=== PATIENT | male | born 1950 | race Caucasian/White ===

== ENCOUNTER → 2024-07-11 09:24 | Outpatient (REF) | payer MEDICARE, OTHER, SELFPAY | LOC: HWRAD 09:24 | PROVIDERS: ATTENDING PHYSICIAN Urology; FAMILY PHYSICIAN Family Medicine | DX: N20.0 Calculus of kidney (principal) | CPT/HCPCS: 76770 ==

== ENCOUNTER 2024-09-04 03:51 | Emergency (ER) | payer MEDICARE, OTHER, SELFPAY ==
[2024-09-04 03:53] VITALS: BP 177/92
[2024-09-04 05:22] LABS: % Eosinophils 2.1 % (0-6); % Immature Granulocytes 0.3 % (0-0.5); % Lymphocytes 32.1 % (20.5-51.1); % Monocytes 11.5 % (1.7-9.3); Absolute Basophils 0.1 10^3/uL (0-0.2); Absolute Eosinophils 0.1 10^3/uL (0-0.7); Absolute Monocytes 0.7 10^3/uL (0.1-0.6); Absolute Neutrophils 3.3 10^3/uL (1.4-6.5); Hematocrit 42.8 % (39.0-52.0); Hemoglobin 14.6 g/dL (13.0-18.0); Mean Corp Hgb Conc. 34.1 g/dL (33.0-37.0); Mean Corpuscular Hgb 30.2 pg (27.0-31.0); Mean Corpuscular Volume 88.4 fL (80.0-94.0); Mean Platelet Volume 9.4 fL (7.4-10.4); Nucleated Red Blood Cells % 0 % (-); Platelet Count 184 10^3/uL (130-400); Red Blood Cell Count 4.84 10^6/uL (4.70-6.10); Red Cell Dist. Width 12.3 % (11.5-14.5); White Blood Cell Count 6.2 10^3/uL (4.8-10.8)
[2024-09-04 05:33] LABS: ALT (SGPT) 22 U/L (0-50); AST (SGOT) 28 U/L (17-59); Albumin 4.3 g/dl (3.5-5.0); Alkaline Phosphatase 104 U/L (38-126); Blood Urea Nitrogen 28 mg/dl (9-20); Calcium 9.5 mg/dl (8.4-10.2); Carbon Dioxide 26 mmol/L (22-30); Chloride 106 mmol/L (98-107); Glucose 125 mg/dl (70-99); Potassium 4.5 mmol/L (3.5-5.1); Sodium 142 mmol/L (135-145); Total Bilirubin 0.6 mg/dl (0.2-1.3); Total Protein 6.6 g/dl (6.3-8.2); eGFR 57.65
[2024-09-04 06:14] LABS: Urine Albumin Trace (Neg - Trace); Urine Bilirubin Negative (Negative); Urine Character Clear (Clear); Urine Color Yellow; Urine Glucose Negative (Negative); Urine Ketone Negative (Negative); Urine Leukocyte Negative (Negative); Urine Nitrite Negative (Negative); Urine Occult Blood Negative (Negative); Urine Specific Gravity 1.025 (<1.030); Urine Urobilinogen Negative (Neg - 1+)
[2024-09-04 06:51] VITALS: BP 155/85
[2024-09-04 06:52] VITALS: BP 155/85
--- NOTE | 2024-09-04 07:30 | ED.GENMED ---
History of Present Illness
General
Chief Complaint: Back Pain
Source: patient
Exam Limitations: none
Time Seen by Provider: 09/04/24 06:21
Nursing documentation reviewed up to this point in time: agreed with
History of Present Illness
History of Present Illness:
Patient presents to ED secondary to persistent left lower back pain over the past 3 days. Patient was evaluated urgent care center yesterday and prescribed naproxen, which he has taken with mild relief in symptoms. Denies trauma. Denies nausea or
vomiting. Denies difficulty with urination. Denies loss of sensation or weakness. Denies urinary or bowel incontinence. Denies any fever or chills. Patient has had history of kidney stones, is unsure if his symptoms are similar. Denies
difficulty with ambulation. Denies recent change in activities.
Past History
Past History
ED Past Medical History: CAD, GERD, Hypercholesterolemia and Other (Arthritis, degenerative arthritis, angina)
ED Past Surgical History: Cardiac (Cardiac catheterization with stenting) and Orthopedic (Elbow surgery)
Social History
Tobacco: Non-smoker
Personal:
Living: with family
Employment: Employed
Review of Systems
Review of Systems
Allergies reviewed?: Yes
All Other Systems: ROS reviewed and negative except as documented in HPI and ROS
Constitutional: Reports no symptoms; Denies fever
Respiratory: Reports no symptoms
Cardiac: Reports no symptoms
ABD/GI: Reports no symptoms; Denies abdominal pain, nausea, vomiting or diarrhea
: Reports no symptoms; Denies incontinence
Musculoskeletal: Reports back pain
Skin: Reports no symptoms
Neurological: Reports no symptoms
Phy Exam
Physical Exam
Physical Exam:
Physical Exam
General: no apparent distress, not acutely ill. afebrile
Head: nc/at. eomi
Neck: supple. normal range of motion.
Abdomen: normal bowel sounds. not tender.
Back: no midline tenderness. mild left lower back tenderness to palpation, at level of L3-4. negative straight leg raise
Neuro: alert and oriented x 3. no focal neurological deficits. normal gait.
Skin: no rash
Psychiatric: well kept. interactive and cooperative
Extremities: no edema. no calf tenderness.
Course
Orders/Labs/Results
Orders:
Orders
09/04/24 04:57
Complete Blood Count/With Diff Urgent
Comprehensive Metabolic Panel Urgent
09/04/24 05:57
Urinalysis Reflex To Culture Urgent
Date Specimen was Collected: 09/04/24
Time Specimen was Collected: 04:00
09/04/24 06:29
CT Abd/pel Without Iv Or Oral Urgent
Comment:
Reason For Exam: left flank/lower back pain w hx kidney stone
09/04/24 08:16
Tramadol HCl [Ultram] 50 mg PO NOW STA
Abnormal Lab Results
09/04/24
04:57
Absolute Monos (auto) 0.7 H 10^3/uL
(0.1-0.6)
Monocytes % 11.5 H %
(1.7-9.3)
BUN 28 H mg/dl
(9-20)
Glucose 125 H mg/dl
(70-99)
09/04/24 04:57
09/04/24 04:57
Vital Signs
Initial and Last Documented VS:
Initial Vital Signs
Temp Pulse Resp BP Pulse Ox
98.0 F 56 18 177/92 98
09/04/24 03:53 09/04/24 03:53 09/04/24 03:53 09/04/24 03:53 09/04/24 03:53
Last Documented Vital Signs
Temp Pulse Resp BP Pulse Ox
98.0 F 58 20 149/89 97
09/04/24 03:53 09/04/24 08:17 09/04/24 08:17 09/04/24 08:17 09/04/24 08:17
MDM/Problems Addressed
MDM/Problems Addressed:
CT abdomen pelvis: No acute findings. History exam consistent with nonspecific back pain, likely musculoskeletal etiology. Will recommend conservative treatment, including warm compress, rest, along with steroids. Patient will be advised to
follow-up with PCP for reevaluation, including potential MRI lumbar spine, if symptoms persist. Patient currently does not have any exam findings concerning for cauda equina syndrome, but will provide precautions when he should return to ED, i.e.
incontinence/weakness/numbness/fever.
*Critical Care Note
Total Time (30-74mins, 75-104mins- exclusive of procedures): Not Applicable
ED Attending Note
-
Portions of this chart may have been created with voice recognition software.� Occasional wrong word or��sound alike� substitutions may have occurred due to the inherent limitations of voice recognition software.
Discharge Plan
Departure
Patient Disposition: Home (Routine Discharge)
Date of Disposition: 09/04/24
Time of Disposition: 07:34
Patient with high blood pressure during this ER visit?: Yes
Condition: Good
Discharge Problem:
Back pain
Instructions: Low Back Pain (DC)
Prescriptions:
New
methylprednisolone [Medrol ([place])] 4 mg tablets,dose pack
4 mg PO DAILY Qty: 21 0RF
tramadol 50 mg tablet
50 mg PO Q8H PRN (Reason: Pain) Qty: 14 0RF
No Action
aspirin [Aspir-Low] 81 MG tablet,delayed release (DR/EC)
81 mg PO DAILY
nitroglycerin 0.4 MG tablet, sublingual
0.4 mg sublingual [id number] PRN (Reason: chest pain ) Qty: 25 1RF
Rx Instructions:
1 tab under tongue q 5min. x 3 doses as needed for chest pain
multivitamin [Daily Vitamin] 1 EACH tablet
1 tab PO DAILY
calcium carbonate [Calcium 600] 600 MG tablet
600 mg PO DAILY
atorvastatin 20 MG tablet
40 mg PO QPM
Referrals:
Girish Romero MD [Family Provider] -
Activity Restrictions/Additional Instructions:
As discussed, please follow-up with your primary care physician for reevaluation, including potential MRI lumbar spine, if your symptoms persist. In the meantime, recommend conservative treatment, including prescribed medication as well as
Tylenol/Motrin for pain. Your prescription has been sent electronically to [facility] pharmacy in [place].
Interventions
Interventions:
*Risk Screen - Suicide Last Done: 09/04/24 06:50
*General Assessment Last Done: 09/04/24 03:53
*Neglect/Abuse Screening Last Done: 09/04/24 03:53
ED- Fall Risk Assessment Last Done: 09/04/24 06:50
*ED COVID-19 Vaccine History Last Done: 09/04/24 03:53
*Nursing Disposition Last Done: 09/04/24 08:26
ED-Musculoskeletal Assessment Last Done: 09/04/24 06:50
Discharge Date and Time
Discharge Date/Time: 09/04/24 08:28
Print Language: ARABIC
[2024-09-04 08:17] VITALS: BP 149/89
[2024-09-04] MEDS: ULTRAM 50 MG PO (08:24)
== END 2024-09-04 08:28 | disposition home or self-care (01) ==
LOC: EMR 03:51
PROVIDERS: Emergency Medicine; EMERGENCY PHYSICIAN Emergency Medicine; FAMILY PHYSICIAN Family Medicine
DX: M54.9 Dorsalgia, unspecified (principal)
CPT/HCPCS: 99284; 74176; 80053; 81003; 85025

== ENCOUNTER → 2025-06-23 10:26 | Outpatient (REF) | payer MEDICARE, OTHER, SELFPAY | LOC: RAD 10:26 | PROVIDERS: ATTENDING PHYSICIAN Urology; FAMILY PHYSICIAN Family Medicine | DX: N20.0 Calculus of kidney (principal) | CPT/HCPCS: 76775 ==

== ENCOUNTER → 2025-08-14 09:42 | Outpatient (REF) | payer MEDICARE, OTHER, SELFPAY | LOC: RCS 09:42 | PROVIDERS: ATTENDING PHYSICIAN Internal Medicine Cardiovascular Disease; FAMILY PHYSICIAN Family Medicine | DX: I25.10 Atherosclerotic heart disease of native coronary artery without angina pectoris (principal); I35.0 Nonrheumatic aortic (valve) stenosis; R42 Dizziness and giddiness | CPT/HCPCS: 93017; 93350 ==

== ENCOUNTER → 2025-08-20 06:56 | Outpatient (REF) | payer MEDICARE, OTHER, SELFPAY | LOC: RCS 06:56 | PROVIDERS: ATTENDING PHYSICIAN Internal Medicine Cardiovascular Disease; FAMILY PHYSICIAN Family Medicine | DX: I25.10 Atherosclerotic heart disease of native coronary artery without angina pectoris (principal); I35.0 Nonrheumatic aortic (valve) stenosis; R42 Dizziness and giddiness | CPT/HCPCS: 93306 ==